=== PATIENT | female | born 2000 | race Caucasian/White ===

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

== ENCOUNTER 2021-09-30 18:29 | Emergency (ER) | payer MEDICAID, OTHER ==
[~2021-09-30] VITALS: Ht 167.6 cm; Wt 106.0 kg
[2021-09-30 18:30] VITALS: BP 135/81
== END 2021-09-30 19:15 | disposition home or self-care (01) ==
LOC: ER 18:29
DX: L02.411 Cutaneous abscess of right axilla (principal)
CPT/HCPCS: 99281

== ENCOUNTER 2022-08-01 12:29 | Emergency (ER) | payer MEDICAID ==
[~2022-08-01] VITALS: Ht 170.2 cm; Wt 100.0 kg
[2022-08-01 12:35] VITALS: BP 149/104
== END 2022-08-01 14:33 | disposition home or self-care (01) ==
LOC: ER 12:29
DX: R20.2 Paresthesia of skin (principal); M79.2 Neuralgia and neuritis, unspecified; J45.909 Unspecified asthma, uncomplicated; Z91.010 Allergy to peanuts
CPT/HCPCS: 99281